=== PATIENT | female | born 1970 | race Caucasian/White ===

== ENCOUNTER → 2016-04-12 | Outpatient (CLI) | payer BC, OTHER ==
[~2016-04-12] MED LIST: PRENTAB26; SYN75 PO
[2016-04-12 18:37] LABS: PREG INTERNAL NEGATIVE QC NEG CLEAR BACKGROUND; PREG INTERNAL POSITIVE QC POS CONTROL LINE
== END | disposition home or self-care (01) ==
LOC: C.LABSPEC 14:46
PROVIDERS: ATTEND Obstetrics & Gynecology
DX: N91.2 Amenorrhea, unspecified (principal)

== ENCOUNTER → 2016-04-18 | Outpatient (CLI) | payer BC ==
[2016-04-18 18:38] LABS: BASO % 0.4 %; BASO ABS # 0.04 K/uL (0-0.2); COMPLETE YES; EOS % 1.4 %; HEMATOCRIT 37.3 % (37-47); IG% 0.3 %; LYMPH % 23.4 %; LYMPH ABS # 2.44 K/uL (1.2-3.4); MEAN CELL VOLUME 86.5 fL (80-100); MEAN CORPUSCULAR HGB CONC 33.5 g/dl (32-36); MEAN PLATELET VOLUME 10.5 fL (7.4-10.4); MONO % 5.6 %; NEUT % 68.9 %; PLATELET COUNT 337 K/uL (130-400); RED BLOOD COUNT 4.31 M/uL (4.2-5.4); WHITE BLOOD COUNT 10.42 K/uL (4.8-10.8)
[2016-04-18 19:03] LABS: BLOOD UREA NITROGEN 10 mg/dl (7-18); BUN/CREATININE RATIO 12.2 (10-20); CALCIUM 9.1 mg/dl (8.5-10.1); CARBON DIOXIDE 30 mmol/L (21-32); CHLORIDE 105 mmol/L (98-107); CREATININE 0.81 mg/dl (0.60-1.20); GLUCOSE 84 mg/dl (70-99); POTASSIUM 3.6 mmol/L (3.5-5.1); SODIUM 142 mmol/L (136-145)
--- NOTE | 2016-04-18 19:04 | DIAGNOSTIC IMAGING REPORT ---
CHEST 2 VIEWS ROUTINE HISTORY: CENTRAL CHEST PAIN COMPARISON: None. FINDINGS: The right lung is clear. The heart is normal in size. No pleural effusions. No pneumothorax. No evidence for pulmonary edema. Hazy appearance of the left lateral lung base. This favors prominent epicardial fat when compared with the lateral view. IMPRESSION: No acute process. Electronically signed by: Anil Montgomery M.D. 04/18/2016 7:02 PM Dictated Date/Time: 04/18/2016 7:00 PM
== END | disposition home or self-care (01) ==
LOC: C.LAB 18:05
PROVIDERS: ATTEND Nurse Practitioner
DX: I10 Essential (primary) hypertension (principal); R07.9 Chest pain, unspecified

== ENCOUNTER → 2016-05-02 | Outpatient (CLI) | payer BC | END | disposition home or self-care (01) | LOC: C.PATHSPEC 11:16 | PROVIDERS: ATTEND Obstetrics & Gynecology | DX: R93.8 Abnormal findings on diagnostic imaging of other specified body structures (principal) ==

== ENCOUNTER 2016-12-07 19:18 | Emergency (ER) | payer BC ==
[~2016-12-07] VITALS: Ht 162.6 cm; Wt 93.0 kg
[~2016-12-07 19:18] MED LIST changes: -SYN75 PO
[2016-12-07 19:20] VITALS: TEMP 36.7; Ht 162.6 cm; Wt 93.0 kg
[2016-12-07] MEDS ORDERED: SYN75 PO (19:36)
--- NOTE | 2016-12-07 20:17 | DIAGNOSTIC IMAGING REPORT ---
CHEST 2 VIEWS ROUTINE HISTORY: cough/wheezing x 1 mth COMPARISON: Chest 04/18/2016. FINDINGS: The lungs are clear. Cardiac silhouette is normal in size. No pleural effusions. No pneumothorax. IMPRESSION: No acute process. Electronically signed by: Anil Montgomery M.D. 12/07/2016 8:16 PM Dictated Date/Time: 12/07/2016 8:14 PM
[2016-12-07] MEDS ORDERED: ALBUTEROL HFA 8 GM INHALER INH STA (20:39)
--- NOTE | 2016-12-07 20:46 | EMERGENCY ROOM VISIT NOTE ---
History First contact with patient: 19:28 Chief Complaint: COUGH Stated Complaint: COUGHING/WEEZING Nursing Triage Summary: pt c/o cough and wheezing x1 month. has not seen pcp. states "I don't have time , i wanted to finally get it checked out." denies hx of lung problems History of Present Illness The patient is a 46 year old female who presents to the Emergency Room with complaints of coughing, wheezing and occasional clear phlegm. The patient has had the symptoms now for a little over 1 month. She has not been evaluated by her PCP. The patient denies any recent runny nose, congestion, sore throat, fevers or chills. She denies any history of seasonal allergies. The patient does have intermittent problems with reflux, estimated that approximately every 2 weeks she will have an episode of indigestion. She denies waking up in the middle the night with shortness of breath, coughing or sore throat. She denies any chest tightness, pressure, pain, shortness of breath or peripheral edema. She denies any pain at the time of my exam. Review of Systems 10 system review was performed and was negative except for pertinent positives and negatives as indicated in history of present illness Past Medical/Surgical History Medical Problems: (1) Depressive Disorder Nec (2) Hyperlipidemia Nec/Nos (3) Hypothyroidism Nos (4) Vitamin D Deficiency Nos Surgical Problems: (1) No history of previous surgery Family History FH: cancer FH: diabetes mellitus FH: heart disease FH: hypertension Social History Smoking Status: Never Smoker Alcohol Use: none Marital Status: Housing Status: lives with family Occupation Status: employed Current/Historical Medications Scheduled Levothyroxine Sodium (Synthroid), 75 MCG PO QAM Physical Exam Vital Signs Date Time Temp Pulse Resp B/P (MAP) Pulse Ox O2 Delivery O2 Flow Rate FiO2 12/07/16 19:23 100 Room Air 12/07/16 19:20 36.7 93 18 161/106 100 Room Air Physical Exam CONSTITUTIONAL: Healthy and well nourished. Alert and oriented X 3 with positive affect. Patient does not appear in any acute distress. She had no cough while in the emergency department. HEENT: Normocephalic, atraumatic. Pupils equal, round and reactive. Examination of the ears does not show any TM bulging or serous effusions. No rhinorrhea. OROPHARYNX: No posterior pharyngeal erythema or tonsillar hypertrophy. NECK: Full active range of motion without discomfort. No JVD or carotid bruits. RESPIRATORY: Clear to auscultation bilaterally with no wheezing, crackles, rhonchi or stridor. CARDIOVASCULAR: Regular rate and rhythm with no murmurs, rubs or gallops. GASTROINTESTINAL: Bowel sounds present in all quadrants. Soft and nontender to palpation. MUSCULOSKELETAL: Full range of motion of all joints without discomfort. Should has no tenderness to palpation over the anterior chest wall or costochondral joints. No peripheral edema noted. INTEGUMENTARY: No rash or other significant dermatologic conditions noted. HEMATOLOGIC: No ecchymosis or petechiae. NEUROLOGIC: No focal neurologic deficits noted. Medical Decision & Procedures ER Provider Diagnostic Interpretation: My interpretation of a two-view chest x-ray does not show any consolidations, pneumothorax or cardiomegaly. Radiologist report is as follows: CHEST 2 VIEWS ROUTINE HISTORY: cough/wheezing x 1 mth COMPARISON: Chest 04/18/2016. FINDINGS: The lungs are clear. Cardiac silhouette is normal in size. No pleural effusions. No pneumothorax. IMPRESSION: No acute process. ED Course Patient history and physical exam were performed. Nurse's notes were reviewed. Vital signs were reviewed, showing a blood pressure of 161/106. Pulse rate and temperature are normal. O2 saturation is 100% on room air. A two-view chest x-ray was normal. While awaiting for her chest x-ray studies, I did review the patient's medical history sheet where she marked a prior history of asthma. Upon further questioning, the patient reports that she did see a railroad car inspector many years ago and had a pulmonary function test. She reports that they were indecisive as to whether she had asthma. A Ventolin metered-dose inhaler with AeroChamber was dispensed, with instructions for its use. In case her symptoms are related to reflux or seasonal allergies, she was also encouraged to take Zantac and Zyrtec. She was encouraged to follow-up with her PCP next week for reevaluation. Return to the emergency department for any progressively worsening cough, fever, shortness of breath or chest pain. The patient was happy with plan care, and voiced understanding of all discharge instructions. The patient was also instructed to follow-up with her PCP for blood pressure recheck since her blood pressure is elevated while in the emergency department. The patient denies any prior history of hypertension. Medical Decision Medication Reconcilliation Current Medication List: was personally reviewed by me Blood Pressure Screening Patient's blood pressure: Elevated blood pressure Blood pressure disposition: Referred to PCP Impression Primary Impression: Cough in adult Additional Impressions: Wheezing Elevated blood pressure reading Departure Information Referrals No Doctor, Assigned (PCP) Patient Instructions My [facility] Health Problem Qualifiers
[2016-12-07 20:52] VITALS: BP 133/97; PULSE 85; O2SAT 99
== END 2016-12-07 20:59 | disposition home or self-care (01) ==
LOC: C.EDB 19:19 → C.EDD 20:59
DX: R05 Cough (principal); R06.2 Wheezing; R03.0 Elevated blood-pressure reading, without diagnosis of hypertension; E03.9 Hypothyroidism, unspecified; Z83.3 Family history of diabetes mellitus; Z82.49 Family history of ischemic heart disease and other diseases of the circulatory system; Z79.899 Other long term (current) drug therapy

== ENCOUNTER → 2017-02-22 | Outpatient (CLI) | payer BC ==
[~2017-02-22] MED LIST changes: -PRENTAB26; +SYN75 PO
--- NOTE | 2017-02-22 15:38 | MAMMOGRAPHY REPORT ---
BILATERAL DIGITAL SCREENING MAMMOGRAM TOMOSYNTHESIS WITH CAD: 02/22/2017 CLINICAL HISTORY: Routine screening. TECHNIQUE: Breast tomosynthesis in addition to standard 2D mammography was performed. Current study was also evaluated with a Computer Aided Detection (CAD) system. COMPARISON: Comparison is made to exams dated: 01/13/2016 mammogram, 01/10/2015 mammogram, 01/04/2014 m ammogram, 12/19/2012 mammogram, 12/11/2011 mammogram, and 12/05/2010 mammogram - [facility]ter. BREAST COMPOSITION: The tissue of both breasts is heterogeneously dense, which may obscure small mas ses. FINDINGS: No suspicious masses, calcifications, or areas of architectural distortion are noted in ei ther breast. There has been no significant interval change compared to prior exams. Bilateral asymme tries/benign-appearing masses are stable compared to prior exams. IMPRESSION: ACR BI-RADS CATEGORY 2: BENIGN There is no mammographic evidence of malignancy. A 1 year screening mammogram is recommended. The pa tient will receive written notification of the results. Approximately 10% of breast cancers are not detected with mammography. A negative mammographic report should not delay biopsy if a clinically suggestive mass is present. Sarah Reyes M.D. ah/:02/22/2017 15:11:19 [employer]: Denis LIND)(M), [facility] letter sent: Normal 1/2 BI-RADS Code: ACR BI-RADS Category 2: Benign
== END | disposition home or self-care (01) ==
LOC: C.MAMM 09:40
PROVIDERS: ATTEND Obstetrics & Gynecology
DX: Z12.31 Encounter for screening mammogram for malignant neoplasm of breast (principal)

== ENCOUNTER → 2017-06-22 | Outpatient (CLI) | payer OTHER ==
[2017-06-22 10:35] LABS: BASO % 0.5 %; BASO ABS # 0.04 K/uL (0-0.2); EOS % 2.9 %; EOS ABS # 0.24 K/uL (0-0.5); HEMATOCRIT 36.4 % (37-47); IG# 0.03 K/uL (0.00-0.02); LYMPH % 32.5 %; LYMPH ABS # 2.67 K/uL (1.2-3.4); MEAN CELL VOLUME 85.2 fL (80-100); MEAN CORPUSCULAR HEMOGLOBIN 28.1 pg (25-34); MEAN PLATELET VOLUME 10.3 fL (7.4-10.4); MONO % 7.4 %; MONO ABS # 0.61 K/uL (0.11-0.59); NEUT % 56.3 %; NEUT ABS # 4.63 K/uL (1.4-6.5); PLATELET COUNT 302 K/uL (130-400); RED CELL DISTRIBUTION WIDTH CV 13.9 % (11.5-14.5); RED CELL DISTRIBUTION WIDTH SD 42.7 fL (36.4-46.3); WHITE BLOOD COUNT 8.22 K/uL (4.8-10.8)
[2017-06-22 11:34] LABS: BLOOD UREA NITROGEN 12 mg/dl (7-18); CALCIUM 9.2 mg/dl (8.5-10.1); CARBON DIOXIDE 27 mmol/L (21-32); CHOLESTEROL 188 mg/dl (0-200); CREATININE 0.77 mg/dl (0.60-1.20); GLUCOSE 83 mg/dl (70-99); LDL CHOLESTEROL CALCULATED 117 mg/dl; POTASSIUM 4.2 mmol/L (3.5-5.1); SODIUM 137 mmol/L (136-145)
== END | disposition home or self-care (01) ==
LOC: C.LAB 10:11
PROVIDERS: ATTEND Nurse Practitioner Adult Health
DX: E78.5 Hyperlipidemia, unspecified (principal); E03.9 Hypothyroidism, unspecified; J45.991 Cough variant asthma

== ENCOUNTER → 2017-08-14 | Outpatient (CLI) | payer OTHER | END | disposition home or self-care (01) | LOC: C.PAPS 11:34 | PROVIDERS: ATTEND Obstetrics & Gynecology | DX: Z01.419 Encounter for gynecological examination (general) (routine) without abnormal findings (principal) ==